=== PATIENT | male | born 1965 | race Caucasian/White ===

== ENCOUNTER 2020-04-13 13:14 | Outpatient (CLI) | payer MEDICARE ==
--- NOTE | 2020-04-13 14:26 | ULT ---
Exam: Bilateral renal ultrasound HISTORY: Diabetes x20 years. Chronic kidney disease COMPARISON: None FINDINGS: Right kidney: Normal cortical echotexture. No hydronephrosis. 0.5 x 0.5 cm echogenic focus may repres ent a nonobstructing calculus in the pelvis. Right kidney measurements: 11.1 x 5.2 x 5.9 cm. Left kidney: Normal cortical echotexture. No hydronephrosis. 0.5 x 0.4 cm echogenic focus may represe nt a nonobstructive calculus in the pelvis Left kidney measurements 10.9 x 6.3 x 5.1 cm. Urinary bladder: Normal mucosa. IMPRESSION: No hydronephrosis.
== END 2020-04-13 13:15 | disposition home or self-care (01) ==
LOC: BICULT 13:14
PROVIDERS: ATTEND Internal Medicine Nephrology
DX: N18.30 Chronic kidney disease, stage 3 unspecified (principal)
CPT/HCPCS: 76770